=== PATIENT | female | born 1970 | race Caucasian/White ===

== ENCOUNTER → 2017-12-17 | Outpatient (CLI) | payer BC ==
[2017-12-17 07:58] VITALS: BP 150/93; PULSE 97; RESP 18; TEMP 96.7; BMI 34.2
--- NOTE | 2017-12-17 09:02 | P.HPOB ---
History of Present Illness H&P Date: 12/17/17 Chief Complaint: Patient is here for her routine gynecologic exam. This is a 47-year-old with an LMP of 12/16/2017. She is here to establish with this office. It has been about 2 years since her last pelvic exam. Her status post vasectomy. She is status post endometrial ablation in 2010. 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 She states she does have mild pelvic pains about one half weeks before each menstrual period. The pain can be on either side or occasionally both sides. It typically lasts for one or 2 days. She is otherwise without complaints. Review of Systems Weight has been stable. She denies respiratory, cardiac, or G.I. problems. Past Medical History Past Medical History: Diabetes Mellitus (Type II diabetes), GERD/Reflux, Hyperlipidemia, Hypertension Additional Past Medical History / Comment(s): Past OB history: for vaginal deliveries. 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 She did have an endometrial ablation for hypermenorrhea. History of Any Multi-Drug Resistant Organisms: None Reported Past Surgical History: Bariatric Surgery, Cholecystectomy, Orthopedic Surgery ( Multiple arthroscopic knee surgeries), Tonsillectomy, Uterine Ablation (2010) Past Anesthesia/Blood Transfusion Reactions: No Reported Reaction Past Psychological History: No Psychological Hx Reported Smoking Status: Never smoker Past Alcohol Use History: None Reported, Occasional (2 per month.) Past Drug Use History: None Reported - Past Family History Father Family Medical History: Cancer (Prostate cancer), Hypertension, Prostate Disorder Mother Family Medical History: CVA/TIA, Diabetes Mellitus, Hypertension Additional Family Medical History / Comment(s): Medications and Allergies Home Medications Medication Instructions Recorded Confirmed Type Atorvastatin [Lipitor] 20 mg PO DAILY 12/17/17 12/17/17 History Cholecalciferol [Vitamin D3] 600 unit PO DAILY@1200 12/17/17 12/17/17 History Empagliflozin/Linagliptin 1 each PO DAILY 12/17/17 12/17/17 History [Glyxambi 10 mg-5 mg Tablet] Lisinopril [Zestril] 2.5 mg PO DAILY 12/17/17 12/17/17 History Multivitamins, Thera [Multivitamin 1 tab PO DAILY 12/17/17 12/17/17 History (formulary)] metFORMIN HCL [Glucophage] 500 mg PO BID 12/17/17 12/17/17 History Allergies Allergy/AdvReac Type Severity Reaction Status Date / Time Penicillins Allergy Unknown Unverified 12/17/17 08:04 Childhood Exam - Vital Signs Vital signs: Vital Signs Temp Pulse Resp BP 12/17/17 07:50 96.7 F L 97 18 150/93 Intake and Output 12/16/17 12/17/17 12/17/17 22:59 06:59 14:59 Other: Weight 84.822 kg Height 5'2", BMI 34.2. This is a well-developed well-nourished white female who is alert and oriented times 3 in no acute distress. HEENT: Within normal limits. NECK: Supple without mass or thyromegaly. CHEST AND LUNGS: Clear to auscultation. HEART: Regular rate and rhythm. BREASTS: Are without mass or discharge. AXILLARY EXAM: Negative for adenopathy. BACK: Negative for CVA tenderness. ABDOMEN: Soft, nontender, without palpable masses. PELVIC EXAM: Normal external genitalia. Cervix and vagina appear normal with a small amount of menstrual blood in the vagina. There is no unusual discharge. There is no evidence of prolapse. The uterus is slightly retro inverted, multiparous, nongravid size and nontender. There are no palpable adnexal masses or tenderness. RECTAL EXAM: negative for mass or tenderness and is negative for occult blood. EXTREMITIES: Nontender. IMPRESSION: 1. 47-year-old premenopausal female whose status post vasectomy with normal gynecologic exam. 2. Status post endometrial ablation with improvement of her hypermenorrhea. 3. Probable mild ovulatory midcycle pains which are mild. There are no significant physical findings at this time. PLAN: 1. Pap smear was performed. 2. Self breast examination was discussed. 3. Screening mammogram is due and she is scheduled for this in 2 days. An order slip was given the patient for this. 4. Osteoporosis prevention was discussed. 5. I recommended home blood pressure monitoring. She will follow-up with Dr. Hinton for blood pressure elevations. 6. She will call if she is having worsening pelvic pains. 7. She will return in one year or PRN.
== END | disposition home or self-care (01) ==
LOC: WWCWWP 07:42
PROVIDERS: ATTEND Obstetrics & Gynecology
DX: Z53.9 Procedure and treatment not carried out, unspecified reason (principal)

== ENCOUNTER → 2017-12-19 | Outpatient (CLI) | payer BC ==
--- NOTE | 2017-12-22 13:31 | MM ---
Reason for exam: screening (asymptomatic). Last mammogram was performed 1 year and 4 months ago. History: Took hormonal contraceptives for 9 years. Physical Findings: A clinical breast exam by your physician is recommended on an annual basis and results should be correlated with mammographic findings. MG Screening Mammo w CAD Bilateral CC and MLO view(s) were taken. Prior study comparison: August 29, 2016, bilateral MG diagnostic mammo w CAD DANIELA. August 09, 2015, bilateral MG screening mammo w CAD. There are scattered fibroglandular densities. No significant changes when compared with prior studies. ASSESSMENT: Benign, BI-RAD 2 RECOMMENDATION: Routine screening mammogram of both breasts in 1 year.
== END | disposition home or self-care (01) ==
LOC: RADMAMWWP 07:25
PROVIDERS: ATTEND Family Medicine
DX: Z12.31 Encounter for screening mammogram for malignant neoplasm of breast (principal)
CPT/HCPCS: 77067

== ENCOUNTER 2018-06-04 08:50 | Day surgery (SDC) | payer BC, OTHER ==
[2018-06-03 09:03] VITALS: BMI 32.9
[~2018-06-04 08:50] MED LIST: CLINDAMYCIN 600 MG in DEXTROSE 5% IN WATER 50 ML IVPB ONE; DEXAMETHASONE SOD PHOSPHATE 10 MG/ML 1 ML VIAL IV ONE; DEXAMETHASONE SOD PHOSPHATE 4 MG/ML 1 ML VIAL IV ONE; FAMOTIDINE 20 MG/2 ML VIAL IV ONE; LACTATED RINGERS 1,000 ML IV SCH; LIDOCAINE 1% 20 ML VIAL (10MG/ML) FOR IV START INTRADERMA PRN; MIDAZOLAM 2 MG/2 ML VIAL IV PRN; ONDANSETRON 4 MG/2 ML VIAL IVP ONE; fentaNYL (PF) 50 MCG/ML 2 ML AMP IV PRN
[2018-06-04] MEDS: OXYMETAZOLINE 0.05% NASL SPRAY 1 SPRAY BOTTLE NASAL ONE ×5 (09:02→09:22)
[2018-06-04 09:08] LABS: Glucose,Whole Blood 112 mg/dL (75-99)
[2018-06-04] MEDS ORDERED: fentaNYL (PF) 50 MCG/ML 2 ML AMP ONE (09:51)
[2018-06-04] MEDS ORDERED: ROCURONIUM BROMIDE 10 MG/ML 10 ML VIAL IV ONE (09:51)
[2018-06-04] MEDS ORDERED: SUCCINYLCHOLINE CHLORIDE 100 MG/5 ML SYR IV ONE (09:51)
[2018-06-04] MEDS ORDERED: DEXAMETHASONE SOD PHOS (MDV) 100 MG/10 ML VIAL ONE (09:51)
[2018-06-04] MEDS ORDERED: LIDOCAINE 1% INJ 10MG/ML (20 ML MDV) ONE (09:51)
[2018-06-04] MEDS ORDERED: PROPOFOL 10 MG/ML 20 ML VIAL IV ONE (09:51)
[2018-06-04] MEDS ORDERED: diphenhydrAMINE 50 MG/ML 1 ML VIAL ONE (09:51)
[2018-06-04] MEDS ORDERED: MIDAZOLAM 2 MG/2 ML VIAL ONE (09:51)
[2018-06-04] MEDS ORDERED: BUPIVACAIN-EPI 0.5%-1:200,000 30 ML VIAL SQ ONE (10:30)
[2018-06-04] MEDS ORDERED: LIDOCAINE 1%-EPI 1:100,000 20 ML VIAL SQ ONE (10:30)
[2018-06-04 11:53] VITALS: TEMP 97
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
[2018-06-04] MEDS ORDERED: fentaNYL (PF) 50 MCG/ML 2 ML AMP IVP ONE (12:19)
[2018-06-04 13:53] VITALS: BP 130/78; PULSE 89; RESP 18
== END 2018-06-04 14:15 | disposition home or self-care (01) ==
LOC: OR 08:50
PROVIDERS: ATTEND Otolaryngology
DX: S02.2XXA Fracture of nasal bones, initial encounter for closed fracture (principal); V89.2XXA Person injured in unspecified motor-vehicle accident, traffic, initial encounter; J34.2 Deviated nasal septum; J34.3 Hypertrophy of nasal turbinates; M95.0 Acquired deformity of nose; K21.9 Gastro-esophageal reflux disease without esophagitis; E11.9 Type 2 diabetes mellitus without complications; I10 Essential (primary) hypertension; Z79.84 Long term (current) use of oral hypoglycemic drugs; Z79.899 Other long term (current) drug therapy; Z88.0 Allergy status to penicillin; Z91.041 Radiographic dye allergy status
CPT/HCPCS: 81025; 88300; 30140; 30420; J2250; J1200; J1100 ×2; J2405; J2001; J3010; J0330; J2704

== ENCOUNTER → 2021-02-27 | Outpatient (CLI) | payer BC ==
[2021-02-27 15:31] LABS: African American GFR (CKD) >90 (>60 ml/min/1.73 sqM); Blood Urea Nitrogen 12 mg/dL (7-17); Non-African American GFR(CKD) >90 (>60 ml/min/1.73 sqM)
--- NOTE | 2021-02-27 16:59 | CT ---
EXAMINATION TYPE: CT brain w con DATE OF EXAM: 02/27/2021 COMPARISON: None HISTORY: headaches, htn CT DLP: 1121 mGycm Automated exposure control for dose reduction was used. CONTRAST: CT scan of the head is performed with IV Contrast, patient injected with 100 mL of Isovue 300. FINDINGS: There is no abnormal enhancing mass or midline shift identified. The ventricles and sulci are within normal limits in size. The globes are intact and the visualized sinuses are remarkable for inflamma tory change in the sphenoid sinus on the left. IMPRESSION: Negative contrast enhanced head CT exam. Sphenoid sinus disease
--- NOTE | 2021-02-27 17:47 | ECHOF ---
Referral Reason:I10 hypertension, E78.5, R51.9 headache MEASUREMENTS -------- HEIGHT: 157.5 cm WEIGHT: 80.3 kg BP: RVIDd: 2.3 cm (< 3.3) IVSd: 0.9 cm (0.6 - 1.1) LVIDd: 3.5 cm (3.9 - 5.3) LVPWd: 1.3 cm (0.6 - 1.1) IVSs: 1.3 cm LVIDs: 2.7 cm LVPWs: 1.4 cm LA Diam: 2.4 cm (2.7 - 3.8) LAESV Index (A-L): 14.22 ml/m Ao Diam: 2.3 cm (2.0 - 3.7) AV Cusp: 1.6 cm (1.5 - 2.6) MV EXCURSION: 16.399 mm (> 18.000) MV EF SLOPE: 82 mm/s (70 - 150) EPSS: 0.2 cm MV E Carlos: 0.55 m/s MV DecT: 156 ms MV A Carlos: 1.03 m/s MV E/A Ratio: 0.53 RAP: 5.00 mmHg RVSP: 23.73 mmHg FINDINGS -------- Sinus rhythm. This was a technically good study. LV size, wall thickness and systolic function are normal, with an EF greater than 55%. The left archie tricular size is normal. The diastolic filling pattern is normal for the age of the patient 6.43. The right ventricle is normal in size. Normal LA size by volume 22+/-6 ml/m2. The right atrial size is normal. The aortic valve is trileaflet, and appears structurally normal. No aortic stenosis or regurgitation. The mitral valve is normal. Mild mitral regurgitation is present. The tricuspid valve appears structurally normal. Mild tricuspid regurgitation present. Right vent ricular systolic pressure is normal at < 35 mmHg. There is no pulmonic regurgitation present. The aortic root size is normal. There is no pericardial effusion. CONCLUSIONS -------- 1. LV size, wall thickness and systolic function are normal, with an EF greater than 55%. 2. The left ventricular size is normal. 3. Normal LA size by volume 22+/-6 ml/m2. 4. The aortic valve is trileaflet, and appears structurally normal. No aortic stenosis or regurgitati on. 5. Mild mitral regurgitation is present. 6. Mild tricuspid regurgitation present. 7. There is no pericardial effusion. MACHINE PRESSER: Pippa Duque RDCS
--- NOTE | 2021-02-28 07:06 | US ---
EXAMINATION TYPE: US carotid duplex BILAT DATE OF EXAM: 02/27/2021 COMPARISON: NONE CLINICAL HISTORY: E78.5 HYPERLIIPIDEMIA. Family hx TIA. HTN controlled with meds. EXAM MEASUREMENTS: RIGHT: Peak Systolic Velocity (PSV) cm/sec ----- Right CCA: 65.1 ----- Right ICA: 97.4 ----- Right ECA: 83.1 ICA/CCA ratio: 1.5 RIGHT: End Diastole cm/sec ----- Right CCA: 23.2 ----- Right ICA: 23.2 ----- Right ECA: 12.8 LEFT: Peak Systolic Velocity (PSV) cm/sec ----- Left CCA: 74.3 ----- Left ICA: 110.6 ----- Left ECA: 73.2 ICA/CCA ratio: 1.5 LEFT: End Diastole cm/sec ----- Left CCA: 19.3 ----- Left ICA: 46.8 ----- Left ECA: 14.9 VERTEBRALS (direction of flow): Right Vertebral: Antegrade Left Vertebral: Antegrade Rhythm: Normal No plaque, wall thickening, elevated velocities or significant stenosis. IMPRESSION: No hemodynamically significant stenosis in the bilateral carotid arterial systems. Criteria for Assigning % of Stenosis / Diameter reduction (Estimation based on the indirect measurements of the internal carotid artery velocities (ICA PSV). 1. Normal (no stenosis)=ICA PSV < 125 cm/s: ratio < 2.0: ICA EDV<40 cm/s. 2. Less than 50% stenosis=ICA PSV < 125 cm/s: ratio < 2.0: ICA EDV<40 cm/s. 3. 50 to 69% stenosis=ICA PSV of 125 to 230 cm/s: ration 2.0 ? 4.0: ICA EDV 40-100 cm/s. 4. Greater than 70% stenosis to near occlusion= ICA PSV > 230 cm/s: ratio > 4.0: ICA EDV > 100 cm/s. 5. Near occlusion= ICA PSV velocities may be low or undetectable: variable ratio and ICA EDV. 6. Total occlusion=unable to detect flow.
== END | disposition home or self-care (01) ==
LOC: RADECHMAIN 14:37
PROVIDERS: ATTEND Family Medicine
DX: I08.1 Rheumatic disorders of both mitral and tricuspid valves (principal); I10 Essential (primary) hypertension
CPT/HCPCS: 93306; 82565; 84520; 93880; 70460; 36415; Q9967

== ENCOUNTER → 2021-03-20 | Outpatient (CLI) | payer BC ==
[2021-03-20 15:47] VITALS: BP 112/77; PULSE 83; RESP 18; TEMP 98.3
== END ==
LOC: WWCWWP 15:03
PROVIDERS: ATTEND Obstetrics & Gynecology
DX: Z12.31 Encounter for screening mammogram for malignant neoplasm of breast (principal); Z01.419 Encounter for gynecological examination (general) (routine) without abnormal findings; E11.9 Type 2 diabetes mellitus without complications; I10 Essential (primary) hypertension; F41.9 Anxiety disorder, unspecified; K21.9 Gastro-esophageal reflux disease without esophagitis; Z79.84 Long term (current) use of oral hypoglycemic drugs; Z79.899 Other long term (current) drug therapy; Z88.0 Allergy status to penicillin; Z91.041 Radiographic dye allergy status
CPT/HCPCS: 77063; 77067

== ENCOUNTER → 2021-07-13 | Outpatient (CLI) | payer BC ==
[~2021-07-13] MED LIST changes: +CASIRIVIMAB (REGN10933) (EUA) 600 MG, IMDEVIMAB (REGN10987) (EUA) 600 MG in SODIUM CHLO... IVPB NR; -CLINDAMYCIN 600 MG in DEXTROSE 5% IN WATER 50 ML IVPB ONE; -DEXAMETHASONE SOD PHOSPHATE 10 MG/ML 1 ML VIAL IV ONE; -DEXAMETHASONE SOD PHOSPHATE 4 MG/ML 1 ML VIAL IV ONE; -FAMOTIDINE 20 MG/2 ML VIAL IV ONE; -LACTATED RINGERS 1,000 ML IV SCH; -LIDOCAINE 1% 20 ML VIAL (10MG/ML) FOR IV START INTRADERMA PRN; -MIDAZOLAM 2 MG/2 ML VIAL IV PRN; -ONDANSETRON 4 MG/2 ML VIAL IVP ONE; +SODIUM CHLORIDE 0.9% 50 ML IVPB ONE; +SODIUM CHLORIDE 0.9% 500 ML 500 ML in EMPTY BAG 1 BAG IV PRN; -fentaNYL (PF) 50 MCG/ML 2 ML AMP IV PRN
[2021-07-13 11:26] VITALS: BP 141/75; PULSE 76; RESP 16; TEMP 97.8
== END | disposition home or self-care (01) ==
LOC: PROCWHC3 10:36
PROVIDERS: ATTEND Family Medicine
DX: U07.1 COVID-19 (principal); Z86.16 Personal history of COVID-19
CPT/HCPCS: 96361; Q0243; M0243

== ENCOUNTER → 2021-10-26 | Outpatient (CLI) | payer BC ==
--- NOTE | 2021-10-26 12:27 | US ---
EXAMINATION TYPE: US transvaginal DATE OF EXAM: 10/26/2021 COMPARISON: NONE CLINICAL HISTORY: N92.6. TECHNIQUE: Transvaginal (TV). Irregular menses. History of ablation Date of LMP: June of 2021 EXAM MEASUREMENTS: Uterus: 7.1 x 4.0 x 3.7 cm Endometrial Stripe: 0.8 cm Right Ovary: 3.7 x 1.9 x 2.0 cm. This has a complex appearance, see below, short-term follow-up ritesh mmended Left Ovary: 2.1 x 1.5 x 1.4 cm 1. Uterus: fibroids measuring 1.7 x 1.4 x 2.2cm, and 1.4 x 1.3 x 0.9cm 2. Endometrium: small amount of fluid in endocervical canal with echogenic foci measuring 0.8 x 0.1 x 0.7cm, difficult to define borders of endometrium this may be due to ablation 3. Right Ovary: septated lesion measuring 1.6 x 1.3 x 1.2cm 4. Left Ovary: wnl 5. Bilateral Adnexa: wnl 6. Posterior cul-de-sac: mild free fluid IMPRESSION: 1. Uterine fibroids. 2. Small amount of fluid within the endometrial canal. 3. Complex septated appearance to the right ovary. Follow-up exam in 6 weeks is recommended.
== END | disposition home or self-care (01) ==
LOC: RADUSWWP 11:06
PROVIDERS: ATTEND Family Medicine
DX: D25.9 Leiomyoma of uterus, unspecified (principal); N92.6 Irregular menstruation, unspecified
CPT/HCPCS: 76830

== ENCOUNTER → 2021-11-06 | Outpatient (CLI) | payer BC | END | disposition home or self-care (01) | LOC: LABWHC1 08:16 | PROVIDERS: ATTEND Nurse Practitioner Adult Health | DX: R19.09 Other intra-abdominal and pelvic swelling, mass and lump (principal) | CPT/HCPCS: 36415; 86304 ==

== ENCOUNTER → 2021-11-06 | Outpatient (CLI) | payer BC ==
[2021-11-06 08:46] VITALS: BP 147/88; PULSE 73; RESP 17; TEMP 98
--- NOTE | 2021-11-06 09:46 | P.PN ---
Progress Note - Text Progress Note Date: 11/06/21 Chief Complaint: Right stabbing pelvic pain 2 weeks ago. HPI: This is a 51-year-old with an LMP of May 2021. The patient is status post endometrial ablation in 2010 and was having regular light menstrual periods until June 2021. She developed a mild case of Covid in June and since then has not had any menstrual periods. She has been experiencing some hot flashes at night and can wake up sweating. Hot flashes are not bad in the day. 2 weeks ago she had a sharp pelvic pain that she rated at a 7 out of 10 which was stabbing in nature. This did resolve and her pain is now a 0 out of 10. She occasionally does notice some pressure on the right side. She was seen at her PCPs office and a pelvic ultrasound was ordered. The pelvic ultrasound showed a right 1.6cmx1.3cm septated lesion on the right ovary. There are also small uterine fibroids with the largest measuring 2.2 cm. The endometrium was irregular consistent with her previous ablation and the endometrial stripe was measured at 0.8 cm. Blood tests on 10/02/2021 showed a normal TSH and LH of 43 and FSH of 62.7. The patient has noticed a slight whitish vaginal discharge without pruritus or vaginal odor. ROS: She denies respiratory or cardiac problems. GI: Occasional constipation. PE: Blood pressure: 147/88, Height: 5 feet 3 inches, Weight: 161 pounds, Temperature: 98.0, Pulse: 73. Pulse oximeter 98%. This is a well developed, well nourished, white female who is alert and orientedx3, in no acute distress. Abdomen: Soft, nontender, without palpable masses. The abdomen is not distended. Pelvic exam: Normal external genitalia. There is a small to moderate amount of creamy white discharge without odor. Cervix and vagina appear normal. There is no cervical motion tenderness. The uterus is multiparous, nongravid size and nontender. There is mild left adnexal tenderness without palpable mass. There is no right adnexal tenderness or mass noted. Impression: 1. 51-year-old perimenopausal female with a recent oligomenorrhea. 2. Brief right sharp pelvic pain 2 weeks ago which has improved significantly. 3. Septated right ovarian lesion measuring 1.6 cm by ultrasound done on 10/26/2021. Differential diagnosis would include corpus luteum cyst, hemorrhagic cyst or other ovarian neoplasm. Malignancy is unlikely based on its description. 4. Small uterine fibroids and endometrial findings consistent with her previous ablation by ultrasound. 5. Slight vaginal discharge. Differential diagnosis will include Che vaginitis, bacterial vaginosis or physiologic discharge. 6. Mild left pelvic tenderness on exam today. This may be from an ovarian cyst developing on the left side. Plan: 1. Affirm vaginitis panel was obtained from the vagina. 2. We have had a long discussion regarding her findings. I have reassured her that I do not feel this is likely to be malignant. Her findings at and symptoms seem to be most consistent with her perimenopause. We will plan on repeating the pelvic ultrasound an approximate 6 weeks. 3. She will keep a menstrual calendar and call if menstrual problems or worsening pain. Time spent with the patient: 30 minutes
[2021-11-07 15:52] LABS: Gardnerella Negative (Negative); Source Vagina; Trichomonas Negative (Negative)
--- NOTE | 2021-11-08 11:19 | P.PN ---
Progress Note - Text Progress Note Date: 11/08/21 Affirm vaginitis panel done 11/06/21 was positive for Che and negative for Gardnerella and Trichomonas. She was having a slight whitish discharge. This result was left on the patients voicemail. I also said I will send in a prescription for this to [facility] on [facility] in [place]. She should call if questions. A/Che Vaginitis P/ Diflucan 150 mg PO x1, one refill.
== END ==
LOC: WWCWWP 08:29
PROVIDERS: ATTEND Obstetrics & Gynecology
DX: N92.6 Irregular menstruation, unspecified (principal); R10.2 Pelvic and perineal pain; N83.10 Corpus luteum cyst of ovary, unspecified side; D25.9 Leiomyoma of uterus, unspecified
CPT/HCPCS: 87480; 87510; 87660

== ENCOUNTER → 2021-12-12 | Outpatient (CLI) | payer BC ==
--- NOTE | 2021-12-12 10:21 | CT ---
EXAMINATION TYPE: CT pelvis wo con DATE OF EXAM: 12/12/2021 COMPARISON: Ultrasound dated 10/26/2021 HISTORY: Right ovarian mass CT DLP: 568 mGycm Automated exposure control for dose reduction was used. TECHNIQUE: Multiplanar CT scan of the pelvis with oral and without IV contrast administration. FINDINGS: The described right adnexal complex cyst/lesion is not appreciated by this nonenhanced CT scan. Retro verted uterus. No gross uterine or adnexal mass. Unremarkable urinary bladder. Unremarkable visualize d small bowel and colon. Normal appendix. No pelvic lymphadenopathy or fluid. No aggressive bone lesion. Bilateral L4-5 and L5 -S1 facet osteoarthropathy with grade 1 anterolisthesis of L4 over L5. IMPRESSION: The previously described right adnexal complex cyst/lesion is not appreciated by this nonenhanced CT scan. As previously recommended on the ultrasound report, follow-up pelvic ultrasound should be consi dered. If the lesion is still appreciated, further MRI assessment should be considered. Incidental fi ndings as described above.
== END | disposition home or self-care (01) ==
LOC: RADCTMAIN 08:13
PROVIDERS: ATTEND Nurse Practitioner Adult Health
DX: R19.09 Other intra-abdominal and pelvic swelling, mass and lump (principal)
CPT/HCPCS: 72192

== ENCOUNTER → 2022-01-25 | Outpatient (CLI) | payer BC ==
--- NOTE | 2022-01-25 12:14 | US ---
EXAMINATION TYPE: US transvaginal DATE OF EXAM: 01/25/2022 COMPARISON: NONE CLINICAL HISTORY: N83.0 cyst of ovary, N926 IRREGULAR MENSTRUATION. previous rt ovarian complex cyst in Oct 2021, not seen on recent CT, no symptoms, h/o ablation TECHNIQUE: TV. Transvaginal sonographic images Date of LMP: Jun 2022 EXAM MEASUREMENTS: Uterus: 7.3 x 5.6 x 3.6 cm Endometrial Stripe: 0.8 cm Right Ovary: 4.1 x 2.3 x 2.7 cm Left Ovary: 1.8 x 1.8 x 1.5 cm 1. Uterus: Retroverted wnl 2. Endometrium: wnl 3. Right Ovary: 1.3cm dominate follicle seen 4. Left Ovary: wnl 5. Bilateral Adnexa: wnl 6. Posterior cul-de-sac: wnl IMPRESSION: Right ovarian follicle.
== END | disposition home or self-care (01) ==
LOC: RADUSWWP 10:58
PROVIDERS: ATTEND Family Medicine
DX: N92.6 Irregular menstruation, unspecified (principal); N83.01 Follicular cyst of right ovary
CPT/HCPCS: 76830

== ENCOUNTER → 2022-04-09 | Outpatient (CLI) | payer BC ==
[2022-04-09 09:37] VITALS: BP 119/79; PULSE 88; RESP 17; TEMP 98.4
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
== END | disposition home or self-care (01) ==
LOC: WWCWWP 09:23
PROVIDERS: ATTEND Obstetrics & Gynecology
DX: Z53.9 Procedure and treatment not carried out, unspecified reason (principal)

== ENCOUNTER → 2022-04-29 | Outpatient (CLI) | payer BC ==
--- NOTE | 2022-04-30 10:48 | MM ---
Reason for Exam: Screening (asymptomatic). Last mammogram was performed 1 year(s) and 1 month(s) ago. Patient History: Menarche at age 9. First Full-Term at age 18. Patient used Hormonal Contraceptives for 9 years. Maternal grandmother had breast cancer, age 40. Risk Values: Nidia 5 year model risk: 1.1%. NCI Lifetime model risk: 8.4%. Prior Study Comparison: 08/29/2016 Bilateral Diagnostic Mammogram, [facility]. 12/19/2017 Bilateral Screening Mammogram, [facility]. 03/20/2021 Bilateral Screening Mammogram, [facility]. Tissue Density: There are scattered fibroglandular densities. Findings: Analyzed By CAD. There is no suspicious group of microcalcifications or new suspicious mass in either breast. Overall Assessment: Negative, BI-RAD 1 Management: Screening Mammogram of both breasts in 1 year. A clinical breast exam by your physician is recommended on an annual basis and results should be correlated with mammographic findings. Electronically signed and approved by: Gerry Stokes M.D. Radiologis
== END | disposition home or self-care (01) ==
LOC: RADMAMWWP 11:12
PROVIDERS: ATTEND Obstetrics & Gynecology
DX: Z12.31 Encounter for screening mammogram for malignant neoplasm of breast (principal)
CPT/HCPCS: 77063; 77067